=== PATIENT | female | born 1950 | race Caucasian/White ===

== ENCOUNTER → 2017-05-24 | Outpatient (CLI) | payer BC, OTHER | LOC: BMCIMAGING 08:59 | PROVIDERS: ATTEND Obstetrics & Gynecology | DX: Z12.31 Encounter for screening mammogram for malignant neoplasm of breast (principal) | CPT/HCPCS: G0202 ==

== ENCOUNTER 2017-12-08 18:17 | Observation (INO) | payer BC ==
[~2017-12-08 18:17] MED LIST: IOPAMIDOL (ISOVUE-300) 100 ML BTL ONE
--- NOTE | 2017-12-08 19:09 | EDPHY ---
HPI/HX/ROS/PE/MDM Narrative: CHIEF COMPLAINT: Small bowel obstruction on CT HISTORY OF PRESENT ILLNESS: The patient is a 67 y/o female with a history of Graves disease and hyperlipidemia arriving from the imaging department for admission for a small bowel obstruction seen on CT today. She noticed diarrhea yesterday and this morning upon waking noticed diffuse "tight" abdominal pain and nausea. Pain was so severe she remained bent over and was unable to find a comfortable position. She took Tylenol for pain with improvement. She never vomited, but has been belching frequently. She is not passing gas. She was evaluated at urgent care today and ultimately referred for an outpatient CT here , which showed a mechanical small bowel obstruction. While waiting for the CT results, she ate some mashed potatoes in the cafeteria around 17:30 about 2 hours ago and felt better and has not vomited. Upon receiving the CT results she was sent to the ED for admission to the hospital. Her only abdominal surgery was a tubal ligation. She has no personal history of diabetes or hypertension; her father from [place]. She has not had a stress test or recent EKG. No fever, chills, chest pain, shortness of breath, palpitations, vomiting, urinary complaints, headache, lightheadedness. REVIEW OF SYSTEMS: Aside from elements discussed in the HPI, a comprehensive 10-point review of systems was reviewed and is negative. PAST MEDICAL HISTORY: 1. Graves disease treated with radioactive iodine - on Synthroid 2. Hyperlipidemia - Lipitor 3. Edema 4. Pneumonia x2 5. Tubal ligation 6. Foot surgery FAMILY HISTORY: Father of "massive heart attack" and had CABGx3. SOCIAL HISTORY: at bedside. Lives in [place]. PCP: Dr. Muro VITAL SIGNS: Reviewed by me. BP 140/78 GENERAL: Well-developed, well-nourished, resting comfortably in no respiratory distress. HEENT: Atraumatic. Eyes: No icterus, no injection. Mouth: moist mucous membranes. No erythema or lesions. Neck: supple with no adenopathy. LUNGS: Clear to auscultation bilaterally, no wheezes, rhonchi or rales. CARDIAC: Regular rate and rhythm, no rubs, murmurs or gallops. ABDOMEN: Soft, epigastric and RUQ and LUQ tenderness, mild, no guarding or rebound, nondistended. BACK: Left CVA tenderness. EXTREMITIES: No trauma. No edema. Range of motion is normal throughout. NEURO: Alert and oriented, grossly nonfocal. SKIN: Warm and dry, no rash. PSYCHIATRIC: Normal mentation, no agitation. Portions of this note were transcribed by a director global medical affairs. I personally performed a history, physical exam, medical decision making, and confirmed accuracy of information the transcribed note. ED Course: CT: small bowel obstruction Consulted with Dr. Lea, surgeon, who appreciates the call. Requests on-call surgeon see the patient. Plan for IV, UA, EKG, chest x-ray, and symptom management. Will not repeat labs as she just had these performed a few hours ago at urgent care. She was mildly hyponatremic at 128. 1L IV NS, 4mg IV Zofran ordered. The 12 lead EKG was interpreted by myself. Sinus mechanism rate 60. See hard copy and/or "tracemaster" electronic copy for interpretation. Consulted with Dr. Fitzgerald, surgery. He will assess patient in the ED. Spoke with hospitalist service. Dr. Jasso accepts admission. MDM: Diff dx considered included small bowel obstruction, ileus, partial bowel obstruction, gastroenteritis, volvulus. - Data Points Imaging Results: Imaging Impressions Abdomen CT 12/08/17 18:00 Impression: Fluid-filled distention of the stomach and small bowel compatible with mechanical small bowel obstruction. Results called to Dr. Guzman at 6:10 p.m. Imaging: Discussed imaging studies w/ freight caller Radiologist, I viewed and interpreted images myself Laboratory Results: 12/08/17 18:40 Urine Color PALE YELLOW Urine Appearance CLEAR Urine pH 7.0 (5.0-7.5) Ur Specific [place] 1.021 (1.002-1.030) Urine Protein NEGATIVE (NEGATIVE) Urine Ketones NEGATIVE (NEGATIVE) Urine Blood NEGATIVE (NEGATIVE) Urine Nitrate NEGATIVE (NEGATIVE) Urine Bilirubin NEGATIVE (NEGATIVE) Urine Urobilinogen NEGATIVE EU EU (0.2-1.0) Ur Leukocyte Esterase TRACE H (NEGATIVE) Urine RBC 1-3 /hpf /hpf (0-3) Urine WBC 1-3 /hpf /hpf (0-3) Ur Epithelial Cells TRACE /lpf /lpf (NONE-1+) Urine Glucose NEGATIVE (NEGATIVE) Medications Given: Discontinued Medications Sodium Chloride (Ns) 1,000 mls @ 0 mls/hr IV ONCE ONE; Wide Open PRN Reason: Protocol Stop: 12/08/17 19:34 Last Admin: 12/08/17 19:52 Dose: 1,000 mls Ondansetron HCl (Zofran) 4 mg IVP EDNOW ONE Stop: 12/08/17 19:34 Last Admin: 12/08/17 19:53 Dose: 4 mg General Initial Vital Signs: Initial Vital Signs Temperature (C) 36.8 C 12/08/17 18:37 Heart Rate 75 12/08/17 18:37 Respiratory Rate 18 12/08/17 18:37 Blood Pressure 140/78 H 12/08/17 18:37 O2 Sat (%) 96 12/08/17 18:37 O2 Delivery Mode Room Air Allergies/Adverse Reactions: azithromycin Allergy (Verified 12/08/17 18:35) hydrocodone [From [place]] Allergy (Verified 12/08/17 18:35) Home Medications: Medication Instructions Recorded Atorvastatin Calcium [Lipitor 10 10 mg PO HS 12/08/17 mg (*)] Herbals/Supplements -Info Only 1 ea PO DAILY 12/08/17 Levothyroxine [Synthroid 112 mcg 112 mcg PO DAILY06 12/08/17 (*)] Triamterene/Hydrochlorothiazid 1 each PO HS 12/08/17 [Triamterene-Hctz 37.5-25 mg Tb] oxyCODONE IR [Oxycodone Ir (*)] 5 - 10 mg PO Q4HRS PRN #30 tab 12/09/17 Departure - Departure Disposition: [facility] Clinical Impression: Small bowel obstruction Abdominal pain Qualifiers: Abdominal location: generalized Qualified Code(s): R10.84 - Generalized abdominal pain Condition: Good Report Scribed for: Taylor Vallecillo Report Scribed by: Madison Hodges Date of Report: 12/08/17 Time of Report: 19:34
[2017-12-08] MEDS ORDERED: NS 1,000 ML IV ONE (19:33)
[2017-12-08] MEDS ORDERED: ONDANSETRON 4 MG/2 ML VIAL IVP ONE (19:33)
--- NOTE | 2017-12-08 19:55 | CPEKG ---
Heart Rate: 60 RR Interval: 1000 P-R Interval: 184 QRSD Interval: 90 QT Interval: 396 QTC Interval: 396 P [place]: 15 QRS [place]: -5 T Wave [place]: 16 EKG Severity - OTHERWISE NORMAL ECG - EKG Impression: SINUS RHYTHM EKG Impression: LOW VOLTAGE IN FRONTAL LEADS Electronically Signed By: Taylor Vallecillo 08-Dec-2017 22:04:45
--- NOTE | 2017-12-08 21:32 | SOAPPROG ---
SOAP Progress Note Assessment/Plan: Assessment: 67 female with one day hx of abd cramps and bloating/ ct shows sbo/ only prior abd surgery was tubal many years ago/ no flatus or bm today, no emesis heent ok 'chest clear cor rr abd slightly distended with bs, nontender, no hernias Plan:observation, ng if emesis 12/08/17 21:29 Objective: Vital Signs Temp Pulse Resp BP Pulse Ox 36.4 C 65 16 138/81 H 95 12/08/17 21:17 12/08/17 21:17 12/08/17 21:17 12/08/17 21:17 12/08/17 21:17 12/07/17 12/08/17 12/09/17 05:59 05:59 05:59 Intake Total 1000 Balance 1000 ICD10 Worksheet Patient Problems: Problems Problem Status Onset Small bowel obstruction Acute
[2017-12-08] MEDS ORDERED: ONDANSETRON 4 MG/2 ML VIAL IVP PRN ×2 (21:33→22:24)
[2017-12-08] MEDS ORDERED: D5W 1/2 NS W/ 20 KCl/L 1,000 ML IV SCH (21:45)
[2017-12-08] MEDS ORDERED: ONDANSETRON DISINTEGRATING 4 MG TAB PO PRN (22:24)
[2017-12-08] MEDS ORDERED: ACETAMINOPHEN 325 MG TAB PO PRN (22:24)
[2017-12-08] MEDS ORDERED: NS W/ 20 KCl/L 1,000 ML IV SCH (22:30)
[2017-12-08] MEDS ORDERED: oxyCODONE IR 5 MG TAB PO PRN (23:05)
--- NOTE | 2017-12-08 23:52 | PDGENHP ---
History and Physical - Chief Complaint Abdominal pain - History of Present Illness 67 yo F w/ HTN and Grave's s/p CORRALES presents w/ abdominal pain. Patient noted diarrhea yesterday. Then, today she began to experience abdominal pain and distention. She denies vomiting and BRBPR or melena. She also denies fevers and chills. The pain progressed throughout the day so she presented to the ED. In the ED CT scan was c/w mechanical SBO. Her only prior abdominal procedure was tubal ligation several decades ago. She has no prior hx of bowel obstructions. At the time of evaluation pain is improved and she is now passing gas. History Information - Allergies/Home Medication List Allergies/Adverse Reactions: azithromycin Allergy (Verified 12/08/17 18:35) hydrocodone [From [place]] Allergy (Verified 12/08/17 18:35) Home Medications: Atorvastatin Calcium [Lipitor 10 mg (*)] 10 mg PO HS 12/08/17 [Last Taken ] Herbals/Supplements -Info Only 1 ea PO DAILY 12/08/17 [Last Taken 12/08/17] Levothyroxine [Synthroid 112 mcg (*)] 112 mcg PO DAILY06 12/08/17 [Last Taken ] Triamterene/Hydrochlorothiazid [Triamterene-Hctz 37.5-25 mg Tb] 1 each PO HS 08/15 [Last Taken 12/07/17] I have personally reviewed and updated: family history, medical history - Past Medical History hypertension Additional medical history: Grave's disease s/p CORRALES - Surgical History Additional surgical history: Tubal ligation - Family History Positive for: CAD - Social History Smoking Status: Never smoked Review of Systems Review of Systems: ROS: 10pt was reviewed & negative except for what was stated in HPI & below Physical Exam Physical Exam: Temp Pulse Resp BP Pulse Ox 36.8 C 78 16 119/62 96 12/08/17 23:37 12/08/17 23:37 12/08/17 23:37 12/08/17 23:37 12/08/17 23:37 Constitutional: no apparent distress, not in pain Eyes: PERRL, EOMI Ears, Nose, Mouth, Throat: moist mucous membranes, no oral mucosal ulcers Cardiovascular: regular rate and rhythym, no murmur, rub, or gallop Respiratory: no respiratory distress, no rales or rhonchi Gastrointestinal: normoactive bowel sounds, tenderness (Mild, diffuse), distension, No guarding, No rebound Skin: warm, normal color Musculoskeletal: full muscle strength, no muscle tenderness Neurologic: AAOx3, CN II-XII Intact Psychiatric: interacting appropriately, not anxious Lab Data & Imaging Review Urine Color PALE YELLOW 12/08/17 18:40 Urine Appearance CLEAR 12/08/17 18:40 Urine pH 7.0 (5.0-7.5) 12/08/17 18:40 Ur Specific [place] 1.021 (1.002-1.030) 12/08/17 18:40 Urine Protein NEGATIVE (NEGATIVE) 12/08/17 18:40 Urine Ketones NEGATIVE (NEGATIVE) 12/08/17 18:40 Urine Blood NEGATIVE (NEGATIVE) 12/08/17 18:40 Urine Nitrate NEGATIVE (NEGATIVE) 12/08/17 18:40 Urine Bilirubin NEGATIVE (NEGATIVE) 12/08/17 18:40 Urine Urobilinogen NEGATIVE EU (0.2-1.0) 12/08/17 18:40 Ur Leukocyte Esterase TRACE (NEGATIVE) H 12/08/17 18:40 Urine RBC 1-3 /hpf (0-3) 12/08/17 18:40 Urine WBC 1-3 /hpf (0-3) 12/08/17 18:40 Ur Epithelial Cells TRACE /lpf (NONE-1+) 12/08/17 18:40 Urine Glucose NEGATIVE (NEGATIVE) 12/08/17 18:40 Imaging Review: Imaging Impressions Abdomen CT 12/08/17 18:00 Impression: Fluid-filled distention of the stomach and small bowel compatible with mechanical small bowel obstruction. Results called to Dr. Guzman at 6:10 p.m. Chest X-Ray 12/08/17 19:33 Impression: Query airways disease, with other findings noted as described above. Assessment & Plan Assessment: 67 yo F w/ HTN and Grave's s/p CORRALES presents w/ SBO. Plan: 1. SBO - CT findings c/w mechanical SBO. Overall this appears mild as patient has not vomited and is now again passing gas. Only abdominal surgery is tubal ligation several decades ago. - Admit for observation - mIVF, pain control, anti-emetics PRN - NGT if pain worsens or develops vomiting - Surgery consulted, appreciate assistance 2. HTN - Continue home medications 3. Grave's disease - S/p CORRALES, now on LTX therapy, continue. Diet - NPO, mIVF Code - Full Ppx - SCDs Dispo - Admit under observation status
[2017-12-09 05:05] LABS: PLATELET COUNT 177 10^3/uL (150-400)
[2017-12-09] MEDS ORDERED: LEVOTHYROXINE 112 MCG TAB PO SCH (06:00)
[2017-12-09] MEDS ORDERED: POLYETHYLENE GLYCOL 3350 17 GM PKT PO ONE (08:45)
--- NOTE | 2017-12-09 08:48 | SOAPPROG ---
SOAP Progress Note Assessment/Plan: Assessment: 67 y/o female with SBO S: Doing much better today. Passed lots of gas last night and feels better. Pain controlled. O: Alert Afebrile RRR No increased WOB Abdomen: soft, nontender, +BS Plan: Small bowel follow through to evaluate SBO. Pleased pt has passed gas and is improving. Clear liquid diet. Likely home later today or tomorrow. 12/09/17 08:45 Objective: Vital Signs Temp Pulse Resp BP Pulse Ox 36.3 C 62 16 119/73 93 12/09/17 08:25 12/09/17 08:25 12/09/17 08:25 12/09/17 08:25 12/09/17 08:25 Laboratory Results 12/09/17 04:40 12/09/17 04:40 12/08/17 12/09/17 12/10/17 05:59 05:59 05:59 Intake Total 1866 Output Total 400 400 Balance 1466 -400 ICD10 Worksheet Patient Problems: Problems Problem Status Onset Small bowel obstruction Acute
[2017-12-09] MEDS ORDERED: POLYETHYLENE GLYCOL 3350 17 GM PKT ONE (13:01)
--- NOTE | 2017-12-09 15:30 | ASMTCMCOM ---
CM Note CM Note Notes: Spoke w/RN, anticipate pt will dc home w/support of when medically stable. CM available for any changes. DC Plan: Independent Date Signed: 12/09/2017 03:29 PM Electronically Signed By:Modesta Turcios RN
[2017-12-09 15:39] VITALS: BP 123/74
--- NOTE | 2017-12-09 15:52 | HOSPPROG ---
Hospitalist Progress Note Assessment/Plan: 67 yo F w/ HTN and Grave's s/p CORRALES presents w/ SBO. Plan: 1. SBO - CT findings c/w mechanical SBO. Only abdominal surgery is tubal ligation several decades ago. - Admit for observation - mIVF, pain control, anti-emetics PRN - Surgery consulted, appreciate assistance - SBFT ordered, pending -tolerating clears, if sbft normal will advance diet as tolerated 2. HTN - Continue home medications 3. Grave's disease - S/p CORRALES, now on LTX therapy, continue. Diet - NPO, mIVF Code - Full Ppx - SCDs Dispo - Admit under observation status Subjective: no significant overnight events, feeling better, tolerating clears Objective: Vital Signs Temp Pulse Resp BP Pulse Ox 36.7 C 52 L 17 123/74 H 99 12/09/17 15:38 12/09/17 15:38 12/09/17 15:38 12/09/17 15:38 12/09/17 15:38 Laboratory Results 12/09/17 04:40 12/09/17 04:40 12/08/17 12/09/17 12/10/17 05:59 05:59 05:59 Intake Total 1866 360 Output Total 400 1000 Balance 1466 -640 awake alert nad anicteric op clear rrr no mrg cta b soft bs present nt nd no cce warm dry well perfused oriented appropriate ICD10 Worksheet Patient Problems: Problems Problem Status Onset Small bowel obstruction Acute
== END 2017-12-09 19:45 | disposition home or self-care (01) ==
LOC: F3E 21:11
PROVIDERS: ADMIT Surgery; ATTEND Surgery
DX: K56.609 Unspecified intestinal obstruction, unspecified as to partial versus complete obstruction (principal); I10 Essential (primary) hypertension; E05.00 Thyrotoxicosis with diffuse goiter without thyrotoxic crisis or storm; E78.5 Hyperlipidemia, unspecified; Z82.49 Family history of ischemic heart disease and other diseases of the circulatory system
CPT/HCPCS: 71046; 74019; 74177; 74250; 93005; G0378; J2405; Q9967

== ENCOUNTER → 2018-02-07 | Outpatient (CLI) | payer BC | LOC: BMCIMAGING 10:00 | PROVIDERS: ATTEND Internal Medicine | DX: Z13.820 Encounter for screening for osteoporosis (principal); M85.89 Other specified disorders of bone density and structure, multiple sites; E07.9 Disorder of thyroid, unspecified; Z78.0 Asymptomatic menopausal state ==

== ENCOUNTER → 2018-02-22 | Outpatient (CLI) | payer BC | LOC: BMCIMAGING 09:18 | PROVIDERS: ATTEND Podiatrist Foot & Ankle Surgery | DX: M79.671 Pain in right foot (principal); M25.871 Other specified joint disorders, right ankle and foot ==

== ENCOUNTER → 2018-05-25 | Outpatient (CLI) | payer OTHER, MEDICARE | LOC: BMCIMAGING 08:46 | PROVIDERS: ATTEND Internal Medicine | DX: Z12.31 Encounter for screening mammogram for malignant neoplasm of breast (principal) ==

== ENCOUNTER → 2018-10-30 | Outpatient (CLI) | payer OTHER, MEDICARE | LOC: BMCIMAGING 15:39 | PROVIDERS: ATTEND Internal Medicine | DX: R07.89 Other chest pain (principal) ==

== ENCOUNTER → 2018-11-02 | Outpatient (CLI) | payer OTHER, MEDICARE | LOC: BMCIMAGING 10:03 | PROVIDERS: ATTEND Family Medicine | DX: S92.535A Nondisplaced fracture of distal phalanx of left lesser toe(s), initial encounter for closed fracture (principal) ==